=== PATIENT | male | born 1990 | race Caucasian/White ===

== ENCOUNTER 2016-10-15 16:04 | Emergency (ER) | payer MEDICAID ==
[~2016-10-15 16:04] MED LIST: predniSONE 20 MG TAB PO SCH
[2016-10-15 16:09] VITALS: BP 126/79; PULSE 97; RESP 20; TEMP 98.6; O2SAT 94
[2016-10-15] MEDS ORDERED: predniSONE 20 MG TAB PO ONE (17:14)
--- NOTE | 2016-10-15 17:15 | EDPHY ---
H & P Time Seen by Provider: 10/15/16 16:54 HPI/ROS: CHIEF COMPLAINT: rash HISTORY OF PRESENT ILLNESS: 25-year-old male presents to the emergency department requesting a "steroid shot". Patient reports he was exposed to poison kirsten yesterday and has a rash to his right arm that is itchy that started this morning. Patient reports a small rash to his left leg that has also started. Patient states last year when he was exposed to poison kirsten he almost lost his right foot due to the amount of swelling in his leg and was told to begin steroids immediately if he gets exposed again. Patient denies fevers or chills, no difficulty breathing, no chest pain. Patient has no other complaints. Smoking Status: Current every day smoker Physical Exam: GEN: Awake, alert, oriented, no acute distress RESP: Lungs clear to auscultation throughout MSK: Normal full active range of motion SKIN: Erythematous, raised, blanchable splotches to right forearm, small area of same to left inner thigh, no break in skin Constitutional: Initial Vital Signs Temperature (C) 37 C 10/15/16 16:06 Heart Rate 97 10/15/16 16:06 Respiratory Rate 20 10/15/16 16:06 Blood Pressure 126/79 H 10/15/16 16:06 O2 Sat (%) 94 10/15/16 16:06 O2 Delivery Mode Room Air Allergies/Adverse Reactions: No Known Allergies Allergy (Unverified 10/15/16 16:06) Home Medications: Medication Instructions Recorded predniSONE 40 mg PO DAILY #6 tab 10/15/16 MDM/Departure - MDM Differential Diagnosis: Diagnosis considered but not limited to poison kirsten, urticaria, Joce Rodrigue syndrome, necrotizing fasciitis. - Depart Disposition: Home, Routine, Self-Care Clinical Impression: Rash Condition: Good Instructions: Acute Rash (ED), Poison Kirsten (ED) Additional Instructions: Take 40mg of prednisone daily for 3 days. Take 25-50mg of benadryl every 8 hours as needed for symptoms. Return to the ED for any fevers, new symptoms or concerns. Prescriptions: predniSONE 40 mg PO DAILY #6 tab Referrals: [facility],. [Clinic] - Follow Up Only If Needed
== END 2016-10-15 17:59 | disposition home or self-care (01) ==
DX: R21 Rash and other nonspecific skin eruption (principal); F17.200 Nicotine dependence, unspecified, uncomplicated
CPT/HCPCS: J7512

== ENCOUNTER 2017-01-05 07:23 | Emergency (ER) | payer MEDICAID ==
[2017-01-05 07:30] VITALS: BP 138/102; PULSE 103; RESP 16; TEMP 97.9; O2SAT 97
--- NOTE | 2017-01-05 07:31 | EDPHY ---
HPI/HX/ROS/PE/MDM Narrative: CHIEF COMPLAINT: Foot pain HPI: The patient is a homeless 26 y/o male arriving via EMS complaining of foot pain. He was found limping in the open space. EMS evaluated him and directed him to be evaluated. He describes the pain as feeling like his feet are "rubbed raw from walking". He denies any other symptoms. Police are also seeking medical clearance for transport to long-term. REVIEW OF SYSTEMS: Aside from elements discussed in the HPI, a comprehensive 10-point review of systems was reviewed and is negative. PMH: Denies SOCIAL HISTORY: Homeless, resides in [place], unemployed PHYSICAL EXAM: General:Patient is alert, in no acute distress. Skin: Normal color. No rash. Warm and dry. Extremities: BLE: Bottom of bilateral feet shows mild erythema and tenderness to palpation. Normal warmth and cap refill all digits. No sign of laceration or FB. Toes show no sign of frostbite. Nails very dirty. Neuro: Oriented x3. Normal motor function. Normal sensory function. MDM: This patient presents for medical clearance with complaint of bilateral foot pain. His exam is not consistent with frostbite, as the only real areas of abnormlity are bilateral soles, not toes. I think this is likely secondary to extensive walking, barefoot walking and/or poor footwear. I see no signs of infection or trauma. Patient noted to be walking normally in ED. General Initial Vital Signs: Initial Vital Signs Temperature (C) 36.6 C 01/05/17 07:27 Heart Rate 103 H 01/05/17 07:27 Respiratory Rate 16 01/05/17 07:27 Blood Pressure 138/102 H 01/05/17 07:27 O2 Sat (%) 97 01/05/17 07:27 O2 Delivery Mode Room Air Allergies/Adverse Reactions: No Known Allergies Allergy (Unverified 10/15/16 16:06) Home Medications: Medication Instructions Recorded predniSONE 40 mg PO DAILY #6 tab 10/15/16 Departure - Departure Disposition: Law Enforcement/Court/[facility] Clinical Impression: Foot pain, bilateral Condition: Good Instructions: Additional Information Additional Instructions: Patient is medically clear for long-term. Referrals: Patient,NotPresent [Unknown] - As per Instructions [facility],. [Clinic] - As per Instructions Report Scribed for: Yg Colin Report Scribed by: Laurel Alcocer Date of Report: 01/05/17 Time of Report: 07:31 Physician Review and Approval Statement: Portions of this note were transcribed by an ED scribe. I personally performed the history, physical exam, and medical decision making; and confirm the accuracy of the information in the transcribed note.
== END 2017-01-05 07:44 ==
DX: M79.671 Pain in right foot (principal); M79.672 Pain in left foot

== ENCOUNTER 2017-08-06 01:17 | Emergency (ER) | payer MEDICAID ==
[2017-08-06] MEDS ORDERED: NS 1,000 ML IV ONE (01:32)
--- NOTE | 2017-08-06 01:32 | EDPHY ---
H & P Stated Complaint: r flank pain sudden onset Time Seen by Provider: 08/06/17 01:31 HPI/ROS: HPI CHIEF COMPLAINT: Right flank pain. 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 He describes sharp stabbing pain in the right CVA region. Sometimes goes upwards and sometimes down his back. He denies any midline back pain. Denies leg pain denies saddle anesthesia or fever. Denies chest pain or shortness of breath. Denies back trauma. It is worse when he goes from lying to sitting position. It does not radiate to his abdomen or down into his testicle. Denies urinary symptoms fever chest pain. Past Medical History: Denies medical history Past Surgical History: Denies surgical history Social History: Smokes tobacco daily, marijuana. Family History: Noncontributory ROS REVIEW OF SYSTEMS: A comprehensive 10 point review of systems is otherwise negative aside from elements mentioned in the history of present illness. Exam Constitutional triage nursing summary reviewed, vital signs reviewed, awake/ alert. Eyes normal conjunctivae and sclera, EOMI, PERRLA. HENT normal inspection, atraumatic, moist mucus membranes, no epistaxis, neck supple/ no meningismus, no raccoon eyes. Respiratory clear to auscultation bilaterally, normal breath sounds, no respiratory distress, no wheezing. Cardiovascular rate normal, regular rhythm, no murmur, no edema, distal pulses normal. Gastrointestinal no abdominal pain on exam, soft, non-tender, no rebound, no guarding, normal bowel sounds, no distension, no pulsatile mass. Genitourinary tender palpation right CVA, Musculoskeletal no midline vertebral tenderness, full range of motion, no calf swelling, no tenderness of extremities, no meningismus, good pulses, neurovascularly intact. Skin pink, warm, & dry, no rash, skin atraumatic. Neurologic awake, alert and oriented x 3, AAOx3, moves all 4 extremities equally, motor intact, sensory intact, CN II-XII intact, normal cerebellar, normal vision, normal speech. Psychiatric normal mood/affect. Heme/Lymph/Immune no lymphadenopathy. Differential diagnosis includes but is not limited to and in no particular order : Kidney stone, musculoskeletal back pain Bowel obstruction, appendicitis, gallbladder disease, diverticulitis, colitis, enteritis, perforated viscus, gastritis, GERD, esophagitis, urinary tract infection, pyelonephritis, kidney stones Medical Decision Making: Plan for this patient IV establishment IV fluid bolus 1 L normal saline, 15 mg IV ketorolac, CT scan abdomen pelvis without contrast, and re-evaluate. Re-evaluation: CT scan abdomen pelvis without contrast for flank pain does show a kidney stone inside the kidney tissue but no collecting system stone. No obstructing stone. There is degenerative disc disease in his back but very mild. Nothing acute on CT scan to explain acute right flank pain. 0230: Patient resting comfortably no acute distress. CT scan shows no evidence of obstructing kidney stone. No other was confirmatory process seen. Constipation present. Most likely muscle skeletal back pain recommend anti-inflammatory pain medicine and rest. Return precautions discussed with him. Patient on exam has no signs of cauda equina leg weakness fever or midline vertebral body pain. Source: Patient - Personal History Current Tetanus/Diphtheria Vaccine: Yes Current Tetanus Diphtheria and Acellular Pertussis (TDAP): Yes - Medical/Surgical History Hx Asthma: No Hx Chronic Respiratory Disease: No Hx Diabetes: No Hx Cardiac Disease: No Hx Renal Disease: Yes Hx Cirrhosis: No Hx Alcoholism: No Hx HIV/AIDS: No Hx Splenectomy or Spleen Trauma: No Other PMH: renal failure - Social History Smoking Status: Current every day smoker Constitutional: Initial Vital Signs Temperature (C) 36.6 C 08/06/17 01:21 Heart Rate 106 H 08/06/17 01:21 Respiratory Rate 18 08/06/17 01:21 Blood Pressure 127/78 H 08/06/17 01:21 O2 Sat (%) 95 08/06/17 01:21 O2 Delivery Mode Room Air Allergies/Adverse Reactions: No Known Allergies Allergy (Unverified 10/15/16 16:06) Home Medications: Medication Instructions Recorded Ibuprofen [Motrin (*)] 800 mg PO Q6-8PRN #10 tab 08/06/17 Medical Decision Making - Data Points Laboratory Results: Laboratory Results 08/06/17 01:36 08/06/17 01:36 08/06/17 08/06/17 08/06/17 01:36 01:36 01:25 WBC 7.09 10^3/uL 10^3/uL (3.80-9.50) RBC 4.97 10^6/uL 10^6/uL (4.40-6.38) Hgb 14.4 g/dL g/dL (13.7-17.5) Hct 42.2 % % (40.0-51.0) MCV 84.9 fL fL (81.5-99.8) MCH 29.0 pg pg (27.9-34.1) MCHC 34.1 g/dL g/dL (32.4-36.7) RDW 14.3 % % (11.5-15.2) Plt Count 223 10^3/uL 10^3/uL (150-400) MPV 10.3 fL fL (8.7-11.7) Neut % (Auto) 51.6 % % (39.3-74.2) Lymph % (Auto) 34.6 % % (15.0-45.0) [place] % (Auto) 10.9 % % (4.5-13.0) Eos % (Auto) 2.1 % % (0.6-7.6) Baso % (Auto) 0.7 % % (0.3-1.7) Nucleat RBC Rel Count 0.0 % % (0.0-0.2) Absolute Neuts (auto) 3.66 10^3/uL 10^3/uL (1.70-6.50) Absolute Lymphs (auto) 2.45 10^3/uL 10^3/uL (1.00-3.00) Absolute Monos (auto) 0.77 10^3/uL 10^3/uL (0.30-0.80) Absolute Eos (auto) 0.15 10^3/uL 10^3/uL (0.03-0.40) Absolute Basos (auto) 0.05 10^3/uL 10^3/uL (0.02-0.10) Absolute Nucleated RBC 0.00 10^3/uL 10^3/uL (0-0.01) Immature Gran % 0.1 % % (0.0-1.1) Immature Gran # 0.01 10^3/uL 10^3/uL (0.00-0.10) Sodium 144 mEq/L mEq/L (135-145) Potassium 4.0 mEq/L mEq/L (3.3-5.0) Chloride 106 mEq/L mEq/L (97-110) Carbon Dioxide 24 mEq/l mEq/l (22-31) Anion Gap 14 mEq/L mEq/L (8-16) BUN 17 mg/dL mg/dL (7-23) Creatinine 0.9 mg/dL mg/dL (0.7-1.3) Estimated GFR > 60 Glucose 97 mg/dL mg/dL (70-100) Calcium 10.3 mg/dL mg/dL (8.5-10.4) Total Bilirubin 0.8 mg/dL mg/dL (0.1-1.4) Conjugated Bilirubin 0.3 mg/dL mg/dL (0.0-0.5) Unconjugated Bilirubin 0.5 mg/dL mg/dL (0.0-1.1) AST 31 IU/L IU/L (17-59) ALT 29 IU/L IU/L (21-72) Alkaline Phosphatase 106 IU/L IU/L (38-126) Total Protein 7.9 g/dL g/dL (6.3-8.2) Albumin 4.7 g/dL g/dL (3.5-5.0) Lipase 82 IU/L IU/L (23-300) Urine Color Urine Appearance Urine pH Ur Specific [place] Urine Protein Urine Ketones Urine Blood Urine Nitrate Urine Bilirubin Urine Urobilinogen Ur Leukocyte Esterase Urine RBC Urine WBC Ur Epithelial Cells Calcium Oxalate Crystal Urine Mucus Urine Glucose Urine Opiates Screen NEGATIVE (NEGATIVE) Urine Barbiturates NEGATIVE (NEGATIVE) Ur Phencyclidine Scrn NEGATIVE (NEGATIVE) Ur Amphetamine Screen NEGATIVE (NEGATIVE) U Benzodiazepines Scrn NEGATIVE (NEGATIVE) Urine Cocaine Screen NEGATIVE (NEGATIVE) U Marijuana (THC) Screen NEGATIVE (NEGATIVE) 08/06/17 01:25 WBC RBC Hgb Hct MCV MCH MCHC RDW Plt Count MPV Neut % (Auto) Lymph % (Auto) [place] % (Auto) Eos % (Auto) Baso % (Auto) Nucleat RBC Rel Count Absolute Neuts (auto) Absolute Lymphs (auto) Absolute Monos (auto) Absolute Eos (auto) Absolute Basos (auto) Absolute Nucleated RBC Immature Gran % Immature Gran # Sodium Potassium Chloride Carbon Dioxide Anion Gap BUN Creatinine Estimated GFR Glucose Calcium Total Bilirubin Conjugated Bilirubin Unconjugated Bilirubin AST ALT Alkaline Phosphatase Total Protein Albumin Lipase Urine Color YELLOW Urine Appearance CLEAR Urine pH 5.0 (5.0-7.5) Ur Specific [place] 1.025 (1.002-1.030) Urine Protein NEGATIVE (NEGATIVE) Urine Ketones TRACE H (NEGATIVE) Urine Blood 1+ H (NEGATIVE) Urine Nitrate NEGATIVE (NEGATIVE) Urine Bilirubin NEGATIVE (NEGATIVE) Urine Urobilinogen 2.0 EU H EU (0.2-1.0) Ur Leukocyte Esterase NEGATIVE (NEGATIVE) Urine RBC 25-50 /hpf H /hpf (0-3) Urine WBC 5-10 /hpf H /hpf (0-3) Ur Epithelial Cells NONE SEEN /lpf /lpf (NONE-1+) Calcium Oxalate Crystal PRESENT /hpf /hpf (NONE-1+) Urine Mucus TRACE /lpf /lpf (NONE-1+) Urine Glucose NEGATIVE (NEGATIVE) Urine Opiates Screen Urine Barbiturates Ur Phencyclidine Scrn Ur Amphetamine Screen U Benzodiazepines Scrn Urine Cocaine Screen U Marijuana (THC) Screen Medications Given: Discontinued Medications Sodium Chloride (Ns) 1,000 mls @ 0 mls/hr IV EDNOW ONE; Wide Open PRN Reason: Protocol Stop: 08/06/17 01:33 Last Admin: 08/06/17 01:52 Dose: 1,000 mls Ketorolac Tromethamine (Toradol) 15 mg IVP EDNOW ONE Stop: 08/06/17 01:41 Last Admin: 08/06/17 01:52 Dose: 15 mg Departure - Departure Disposition: Home, Routine, Self-Care Clinical Impression: Back pain Qualifiers: Back pain location: low back pain Chronicity: acute Back pain laterality: unspecified Sciatica presence: without sciatica Qualified Code(s): M54.5 - Low back pain Condition: Good Instructions: Low Back Strain (ED) Additional Instructions: 1. Take it easy over the next 24-48 hours 2. Rest. 3. Ice. 4. Anti-inflammatory pain medicine. Referrals: NONE *PRIMARY CARE P,. [Primary Care Provider] - As per Instructions Prescriptions: Ibuprofen [Motrin (*)] 800 mg PO Q6-8PRN #10 tab
[2017-08-06] MEDS ORDERED: KETOROLAC 15 MG/1 ML SDV IVP ONE (01:40)
[2017-08-06 01:44] LABS: PLATELET COUNT 223 10^3/uL (150-400)
[2017-08-06 02:38] VITALS: BP 131/97
== END 2017-08-06 02:38 | disposition home or self-care (01) ==
DX: M54.5 Low back pain (principal); E86.9 Volume depletion, unspecified; F17.200 Nicotine dependence, unspecified, uncomplicated
CPT/HCPCS: 80305; 96374; J1885

== ENCOUNTER 2018-02-03 06:46 | Emergency (ER) | payer MEDICAID ==
--- NOTE | 2018-02-03 06:59 | EDPHY ---
H & P Stated Complaint: L leg wounds, draining, multiple wounds various sizes Time Seen by Provider: 02/03/18 06:58 HPI/ROS: CHIEF COMPLAINT: Left leg cellulitis HISTORY OF PRESENT ILLNESS: The patient presents to the ED with left leg cellulitis which has been present for the past 2 weeks. The patient has several discrete areas of erythema and discharge. The patient denies prior history of skin disease. The patient denies any fever. He denies any involvement outside of his left leg. The patient denies any fever, cough or chest pain. REVIEW OF SYSTEMS: A comprehensive 10 point review of systems is otherwise negative aside from elements mentioned in the history of present illness. Source: Patient Exam Limitations: No limitations - Personal History Current Tetanus/Diphtheria Vaccine: Yes Current Tetanus Diphtheria and Acellular Pertussis (TDAP): Yes - Medical/Surgical History Hx Asthma: No Hx Chronic Respiratory Disease: No Hx Diabetes: No Hx Cardiac Disease: No Hx Renal Disease: Yes Hx Cirrhosis: No Hx Alcoholism: No Hx HIV/AIDS: No Hx Splenectomy or Spleen Trauma: No Other PMH: renal failure - Social History Smoking Status: Current every day smoker - Physical Exam Exam: General Appearance: Alert, no distress Eyes: Pupils equal and round no pallor or injection ENT, Mouth: Mucous membranes moist Respiratory: There are no retractions, lungs are clear to auscultation Cardiovascular: Regular rate and rhyth Gastrointestinal: Abdomen is soft and nontender, no masses, bowel sounds ewelina Neurological: 5/5 strength noted all 4 extremities Skin: Cellulitic changes noted to the lower extremities Musculoskeletal: Neck is supple nontende Extremities: symmetrical, full range of motion Constitutional: Initial Vital Signs Temperature (C) 36.4 C 02/03/18 06:47 Heart Rate 103 H 02/03/18 06:47 Respiratory Rate 18 02/03/18 06:47 Blood Pressure 153/111 H 02/03/18 06:47 O2 Sat (%) 98 02/03/18 06:47 O2 Delivery Mode Room Air Allergies/Adverse Reactions: No Known Allergies Allergy (Unverified 02/03/18 06:46) Home Medications: Medication Instructions Recorded Ibuprofen [Motrin (*)] 800 mg PO Q6-8PRN #10 tab 08/06/17 Sulfamethox/Tmp 800/160 mg 1 tab PO BID #20 tab 02/03/18 [Bactrim DS] Tums 500MG (*) 02/03/18 Medical Decision Making ED Course/Re-evaluation: Patient presents to the ED with likely MRSA cellulitis involving the left leg. The patient is nontoxic well-appearing. There is no evidence of a drainable abscess or necrotizing fasciitis. The patient reported a history of renal failure however is noted to have a normal creatinine in the emergency department. The patient will be started on Bactrim. The patient is given the [facility] as he wishes to establish local primary care. - Data Points Laboratory Results: 02/03/18 07:19 POC Hgb TNP POC Hct TNP POC Sodium TNP POC Potassium TNP POC Chloride TNP POC BUN TNP POC Creatinine 0.7 mg/dL mg/dL (0.7-1.3) POC Glucose 110 mg/dL H mg/dL (70-100) Medications Given: Discontinued Medications Trimethoprim/Sulfamethoxazole (Bactrim Ds) 1 ea PO EDNOW ONE PRN Reason: Protocol Stop: 02/03/18 07:07 Last Admin: 02/03/18 07:09 Dose: 1 ea Point of Care Test Results: Chemistry 02/03/18 07:19 POC Sodium TNP POC Potassium TNP POC Chloride TNP POC BUN TNP POC Creatinine 0.7 mg/dL mg/dL (0.7-1.3) POC Glucose 110 mg/dL H mg/dL (70-100) ISTAT H&H 02/03/18 07:19 POC Hgb TNP POC Hct TNP Departure - Departure Disposition: Home, Routine, Self-Care Clinical Impression: Cellulitis Condition: Good Instructions: Cellulitis (ED) Additional Instructions: 1. Please take antibiotics as directed for the next 10 days. 2. Please schedule a follow-up appointment with [facility] to establish primary care. Referrals: [facility],. [Clinic] - As per Instructions Prescriptions: Sulfamethox/Tmp 800/160 mg [Bactrim DS] 1 tab PO BID #20 tab
[2018-02-03] MEDS: SULFAMETHOX/TMP 800/160 MG 1 TAB PO ONE (07:09)
[2018-02-03 07:49] VITALS: BP 142/94
== END 2018-02-03 07:48 | disposition home or self-care (01) ==
DX: L03.116 Cellulitis of left lower limb (principal); F17.200 Nicotine dependence, unspecified, uncomplicated
CPT/HCPCS: 82435-PO; 82565-PO; 82947-PO; 84132-PO; 84295-PO; 84520-PO; 85014-PO

== ENCOUNTER 2018-03-19 14:06 | Emergency (ER) | payer MEDICAID ==
--- NOTE | 2018-03-19 14:31 | EDPHY ---
H & P Smoking Status: Current every day smoker Time Seen by Provider: 03/19/18 14:23 HPI/ROS: CHIEF COMPLAINT: Possible abscess right fibular head region HISTORY OF PRESENT ILLNESS: 27-year-old homeless male complaining of progressive erythema to the right fibular head region. No history of trauma. Flu-like symptoms no chills no nausea no vomiting. Full weight-bearing. No history of injectable drug use in this area. PRIMARY CARE PROVIDER: REVIEW OF SYSTEMS: 10 systems reviewed and are negative with exception of illness mentioned in the history of present illness PHYSICAL EXAM (Prior to examination, patient consented to physical exam, hands were washed and my usual and customary physical exam procedures followed) 1) GENERAL: Well-developed, well-nourished, alert and oriented. Appears to be in no acute distress. 2) HEAD: Normocephalic 3) HEENT: sclera anicteric 4) LUNGS: Breathing comfortably. 5) SKIN: Right fibular head region 4 cm x 4 cm area of erythema with central fluctuance and no drainage. No lymphangitic streaking. No crepitus. Soft compartments. Full range of motion of the right knee. (Asha De La Torre) Constitutional: Initial Vital Signs Temperature (C) 36.8 C 03/19/18 14:12 Heart Rate 117 H 03/19/18 14:12 Respiratory Rate 18 03/19/18 14:12 Blood Pressure 115/75 03/19/18 14:12 O2 Sat (%) 98 03/19/18 14:12 O2 Delivery Mode Room Air Allergies/Adverse Reactions: No Known Allergies Allergy (Verified 03/19/18 14:12) Home Medications: Medication Instructions Recorded Cephalexin [Keflex] 500 mg PO TID 10 Days cap 03/19/18 Sulfamethox/Tmp 800/160 mg 1 tab PO BID@1000,2200 10 Days tab 03/19/18 [Bactrim Ds] MDM/Departure - MDM Procedures: Procedure: Abscess drainage. The patient's abscess was located on the right fibular head region. I obtained verbal consent from the patient to drain the abscess who was informed about the possibility of bleeding and pain. The abscess was incised with a scalpel and a mild amount of purulent drainage was expressed. I irrigated the wound and placed some packing. The patient tolerated the procedure well. The procedure was performed by myself. (Asha De La Torre) Medications Given: Discontinued Medications Cephalexin HCl (Keflex) 500 mg PO EDNOW ONE PRN Reason: Protocol Stop: 03/19/18 14:42 Last Admin: 03/19/18 14:47 Dose: 500 mg Oxycodone/Acetaminophen (Percocet 5/325) 1 tab PO EDNOW ONE Stop: 03/19/18 14:42 Last Admin: 03/19/18 14:47 Dose: 1 tab Trimethoprim/Sulfamethoxazole (Bactrim Ds) 1 ea PO EDNOW ONE PRN Reason: Protocol Stop: 03/19/18 14:42 Last Admin: 03/19/18 14:47 Dose: 1 ea ED Course/Re-evaluation: The patient was evaluated and managed by the Physician [id number] [employer]. My co- signature indicates that I have reviewed this chart and I agree with the findings and plan of care as documented. I am the secondary supervising physician. (Rani Dominguez) - Depart Disposition: Home, Routine, Self-Care Clinical Impression: Abscess Condition: Good Instructions: Cephalexin (By mouth), Sulfamethoxazole/Trimethoprim (By mouth), Abscess (ED) Additional Instructions: Return to the ER if you develop redness, swelling, discharge, warmth to the wound, red streaks going up your leg, or any other symptoms that concern you. Prescriptions: Cephalexin [Keflex] 500 mg PO TID 10 Days cap Sulfamethox/Tmp 800/160 mg [Bactrim Ds] 1 tab PO BID@1000,2200 10 Days tab Referrals: [facility],. [Clinic] - 2-3 days, call for appt.
[2018-03-19] MEDS ORDERED: CEPHALEXIN 500 MG CAP PO ONE (14:41)
[2018-03-19] MEDS ORDERED: OXYCODONE/APAP 5/325 TAB PO ONE (14:41)
[2018-03-19] MEDS ORDERED: SULFAMETHOX/TMP 800/160 MG 1 TAB PO ONE (14:41)
[2018-03-19 14:51] VITALS: BP 133/75
== END 2018-03-19 14:51 | disposition home or self-care (01) ==
PROC: 0H9LXZZ Drainage of Left Lower Leg Skin, External Approach (ICD-10-PCS; principal; 2018-03-19)
DX: L02.416 Cutaneous abscess of left lower limb (principal); Z59.0 Homelessness